=== PATIENT | male | born 1955 | race Caucasian/White ===

== ENCOUNTER → 2016-10-13 | Outpatient (CLI) | payer OTHER ==
[~2016-10-13] MED LIST: CIPR500T4 PO; PRED50TA PO; SOTA80TA PO; TYLCOD5S PO; VENTAER INH
[2016-10-13 08:14] LABS: BLOOD GAS BASE EXCESS 0.9 mmol/L (-2-2); BLOOD GAS CARBOXYHEMOGLOBIN 1.6 % (0-4); BLOOD GAS HCO3 25 mmol/L (22-26); BLOOD GAS METHEMOGLOBIN 1.1 % (0-2); BLOOD GAS O2 HGB SATURATION 94 % (90-100); BLOOD GAS OXYGEN CONTENT 20.7 Vol % (12.0-20.0); BLOOD GAS PCO2 39 mmHG (38-42); BLOOD GAS PO2 81 mmHG (61-120); BLOOD GAS TOTAL HGB 15.6 G/DL (12.0-16.0); TEMP CORR TO 98.6
[2016-10-13 08:15] LABS: CRITICAL VALUE NO; DRAW SITE RT RADIAL; FIO2 21 %; NUMBER OF ARTERIAL PUNCTURES 1; STAT NO; ULNAR PULSE PRESENT
--- NOTE | 2016-10-21 11:27 | RSPPFT ---
DATE OF PROCEDURE: 10/13/16 COMMENTS: Spirometry with FVC of 3.4, FEV1 of 2.7, FEV1/FVC ratio at 78%. Slow vital capacity is 78% of predicted. TLC is 86%. Diffusion capacity is normal. IMPRESSION: 1. No evidence of obstruction or airways restriction. 2. Normal diffusion capacity. 3. Non-significant response to acutely inhaled bronchodilator.
== END ==
LOC: PHRSP 07:31
PROVIDERS: ATTEND Internal Medicine Sleep Medicine
DX: R06.89 Other abnormalities of breathing (principal)
CPT/HCPCS: 36600; 82805; 94060; 94726; 94729